=== PATIENT | male | born 1980 | race Caucasian/White ===

== ENCOUNTER 2017-08-29 13:04 | Emergency (ER) | payer MEDICAID ==
[~2017-08-29] VITALS: Ht 175.3 cm; Wt 89.1 kg
[2017-08-29 13:29] VITALS: BP 128/76
--- NOTE | 2017-08-29 13:35 | NUR ---
PT AMBULATED TO BED 10.
--- NOTE | 2017-08-29 13:41 | NUR ---
PATIENT PRESENTS TO ED WITH RIGHT SIDED FACIAL NUMBNESS/PAIN. PT STATES RT SIDED EAR AND FACE PAIN X1 WEEK. DENIES N/V/D; SKIN IS PINK/WARM/DRY; AAOX4 WITH EVEN AND STEADY GAIT; LUNGS CLEAR BL; HR EVEN AND REGULAR; PT DENIES ANY FEVER, CP, SOB, OR COUGH AT THIS TIME; PATIENT STATES PAIN OF 8/10 AT THIS TIME; VSS; PATIENT POSITIONED FOR COMFORT; HOB ELEVATED; BEDRAILS UP X2; BED DOWN. ER MD MADE AWARE OF PT STATUS.
--- NOTE | 2017-08-29 14:00 | NUR ---
PATIENT SEEN AND ASSESSED BY DR. COHN AT BEDSIDE. 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 NEW ORDERS RECEIVED.
[2017-08-29 14:32] LABS: APPEARANCE,URINE CLEAR (CLEAR); BILIRUBIN,URINE NEGATIVE (NEGATIVE); BLOOD, URINE 1+ (NEGATIVE); LEUKOCYTE ESTERASE ,URINE NEGATIVE (NEGATIVE); NITRITE, URINE NEGATIVE (NEGATIVE); UGLUCOSE NEGATIVE (NEGATIVE)
[2017-08-29 14:37] LABS: BARBITURATE, URINE NEG. ng/ml (NEG <=200); BENZODIAZEPINE, URINE NEG. ng/mL (NEG <=200); CANNABINOID, URINE NEG. ng/mL (NEG <=50); COCAINE, URINE NEG. ng/mL (NEG <=300); COLOR,URINE STRAW (YELLOW); OPIATE, URINE NEG. ng/mL (NEG <=2000); PHENCYCLIDINE SCREEN,URINE NEG. ng/mL (NEG <=25)
[2017-08-29 14:41] LABS: BASOPHILS # (AUTO) 0.6 K/uL (0.00-0.22); EOSINOPHILS # (AUTO) 0.1 K/uL (0-0.4); HEMATOCRIT 48.5 % (36-52); HEMOGLOBIN 16.2 g/dL (12.0-18.0); LYMPHOCYTES # (AUTO) 2.8 K/uL (2.0-11.5); MEAN CORPUSCULAR HEMOGLOBIN 29 pg (27-31); MEAN CORPUSCULAR HGB CONC 33 g/dL (33-37); MEAN CORPUSCULAR VOLUME 86 fL (80-94); MONOCYTES # (AUTO) 0.8 K/uL (0.8-1.0); NEUTROPHILS # (AUTO) 5.3 K/uL (1.8-7.7); PLATELET COUNT (AUTO) 212 K/uL (140-450); RED BLOOD CELL COUNT(AUTO) 5.64 MIL/uL (4.20-6.10); RED CELL DISTRIBUTION WIDTH 12.3 % (11.6-13.7); WHITE BLOOD COUNT (AUTO) 9.6 K/uL (4.8-10.8)
[2017-08-29 14:52] LABS: ANION GAP 13.4 (8-16); CARBON DIOXIDE 26.6 mmol/L (21-32)
[2017-08-29 14:53] LABS: RBC,URINE 3-10 (FEW) /HPF (0-5); WBC,URINE 0-5 (RARE) /HPF (0-5)
[2017-08-29] MEDS: predniSONE 20 MG TAB PO ONE (14:55)
[2017-08-29 14:59] LABS: ALBUMIN 3.9 g/dL (3.4-5.0); TOTAL BILIRUBIN 0.2 mg/dL (0.0-1.0)
[2017-08-29] MEDS: KETOROLAC 30 MG/ML VIAL IM ONE (15:01)
[2017-08-29 15:32] VITALS: BP 128/76
--- NOTE | 2017-08-29 15:32 | NUR ---
Patient discharged with v/s stable. Written and verbal after care instructions given and explained. Patient alert, oriented and verbalized understanding of instructions. Ambulatory with steady gait. All questions addressed prior to discharge. ID band removed. Patient advised to follow up with PMD. Rx of PREDNISONE, ARTIFICIAL TEARS, VALTREX given. Patient educated on indication of medication including possible reaction and side effects. Opportunity to ask questions provided and answered.
== END 2017-08-29 15:32 | disposition home or self-care (01) ==
LOC: MED 13:04
DX: G51.0 Bell's palsy (principal); R29.810 Facial weakness
CPT/HCPCS: 36415; 70450; 80053; 80305; 81001; 85025; 96372; 99285; J1885; J7512

== ENCOUNTER 2024-02-26 12:06 | Emergency (ER) | payer MEDICAID, OTHER ==
[~2024-02-26] VITALS: Ht 175.3 cm; Wt 88.5 kg
[2024-02-26 12:21] VITALS: BP 116/72; PULSE 85; RESP 22; TEMP 97.8; O2SAT 97
[2024-02-26] MEDS: KETOROLAC 30 MG/ML VIAL IM ONE (12:49)
[2024-02-26] MEDS ORDERED: IBUP-2213 PO (13:30)
[2024-02-26] MEDS ORDERED: DICL100G32 TP (13:30)
== END 2024-02-26 13:38 | disposition home or self-care (01) ==
LOC: MED 12:06
DX: S80.01XA Contusion of right knee, initial encounter (principal); Z79.899 Other long term (current) drug therapy; W18.39XA Other fall on same level, initial encounter; Y92.89 Other specified places as the place of occurrence of the external cause; Y93.89 Activity, other specified; Y99.8 Other external cause status
CPT/HCPCS: 73562; 96372; 99283; J1885